=== PATIENT | female | born 1965 | race Two or more races ===

== ENCOUNTER 2022-04-20 11:20 | Emergency (ER) | payer BC ==
[~2022-04-20] VITALS: Ht 149.9 cm; Wt 65.8 kg
[2022-04-20] MEDS ORDERED: AMLODIPINE-OLM1 EAC1 PO (11:32)
[2022-04-20] MEDS ORDERED: XANAX1 MG PO (11:33)
[2022-04-20] MEDS ORDERED: HORIZANT300 MG (11:33)
== END 2022-04-20 20:14 | disposition home or self-care (01) ==
LOC: ER 11:20
DX: J10.1 Influenza due to other identified influenza virus with other respiratory manifestations (principal); Z87.09 Personal history of other diseases of the respiratory system; Z20.822 Contact with and (suspected) exposure to COVID-19